=== PATIENT | male | born 1990 | race Caucasian/White ===

== ENCOUNTER 2016-10-28 10:18 | Emergency (ER) | payer SELFPAY ==
[~2016-10-28] VITALS: Ht 182.9 cm; Wt 70.5 kg
[2016-10-28 10:20] VITALS: TEMP 98.2
[2016-10-28] MEDS ORDERED: GENTAMICIN EYE D5 ML OS (10:44)
[2016-10-28 10:54] VITALS: BP 143/109; PULSE 59
== END 2016-10-28 11:07 | disposition home or self-care (01) ==
LOC: COL.ER 10:18
DX: S05.02XA Injury of conjunctiva and corneal abrasion without foreign body, left eye, initial encounter (principal); S00.212A Abrasion of left eyelid and periocular area, initial encounter; W22.8XXA Striking against or struck by other objects, initial encounter; Y92.89 Other specified places as the place of occurrence of the external cause; F17.210 Nicotine dependence, cigarettes, uncomplicated

== ENCOUNTER 2019-08-24 19:02 | Emergency (ER) | payer OTHER ==
[~2019-08-24] VITALS: Ht 182.9 cm; Wt 75.0 kg
[~2019-08-24 19:02] MED LIST: GENTAMICIN EYE D5 ML OS
[2019-08-24 19:09] VITALS: BP 143/99
[2019-08-24] MEDS ORDERED: TAMIFLU 75MG75 MG PO (20:44)
[2019-08-24 20:55] VITALS: PULSE 72; TEMP 99
== END 2019-08-24 20:56 | disposition home or self-care (01) ==
LOC: COL.ER 19:02
DX: J11.1 Influenza due to unidentified influenza virus with other respiratory manifestations (principal); F17.210 Nicotine dependence, cigarettes, uncomplicated

== ENCOUNTER 2021-01-28 18:16 | Emergency (ER) | payer OTHER ==
[~2021-01-28] VITALS: Ht 182.9 cm; Wt 75.0 kg
[~2021-01-28 18:16] MED LIST changes: +TAMIFLU 75MG75 MG PO
[2021-01-28 18:54] VITALS: TEMP 98.3
[2021-01-28 22:05] VITALS: BP 130/80; PULSE 589
[2021-01-28] MEDS ORDERED: FLEXERIL 1010 MG/TAB PO (22:05)
== END 2021-01-28 22:11 | disposition home or self-care (01) ==
LOC: COL.ER 18:16
DX: M54.5 Low back pain (principal)
CPT/HCPCS: J1885